=== PATIENT | female | born 1990 | race Caucasian/White ===

== ENCOUNTER → 2022-10-19 08:33 | Outpatient (BNVA) | payer OTHER, SELFPAY | PROVIDERS: Visit Provider Nurse Practitioner Family | DX: F07.81 Postconcussional syndrome (principal); G43.009 Migraine without aura, not intractable, without status migrainosus; G47.9 Sleep disorder, unspecified; Z33.1 Pregnant state, incidental | CPT/HCPCS: 99202 ==

== ENCOUNTER → 2023-01-17 14:21 | Outpatient (BNVA) | payer OTHER, SELFPAY | PROVIDERS: Visit Provider Nurse Practitioner Family ==

== ENCOUNTER 2024-02-04 09:59 | Emergency (ER) | payer OTHER, SELFPAY ==
--- NOTE | ~2024-02-04 | XR_ITS ---
EXAMINATION: XR LEFT ANKLE XR CHEST CLINICAL INFORMATION: Chest pain since . Rolled ankle 2 weeks ago, ongoing pain lateral side. History also states rolled ankle 1 week ago, and recommend correlation with clinical history for confirmation. COMPARISON: Left ankle and thoracic spine 11/24/2020. TECHNIQUE: 2 views of the chest. 3 views of the left ankle. Radiopaque marker placed by technologist to indicate the area of concern as indicated by the patient along the lateral aspect of the left ankle. FINDINGS: CHEST: Dextroscoliosis of the thoracic spine with mild multilevel degenerative changes. Heart size is normal. There is no gross pneumothorax. No pleural effusion. Mild anterior loss of height of a midthoracic vertebral body appears more pronounced compared with the exam of 11/24/2020. No focal consolidation to suggest pneumonia. Increased prominence along the left perihilar/mid mediastinal region concerning for possible adenopathy/mass versus vascularity. CT scan of the chest with intravenous contrast recommended. LEFT ANKLE: Soft tissue swelling most prominent at the lateral aspect of the ankle. Trace joint effusion. Ankle mortise is maintained. No acute displaced fracture is appreciated. XR/XR ankle LT min 3V IMPRESSION: 1. Increased prominence along the left perihilar/mid mediastinal region concerning for possible adenopathy/mass versus vascularity. CT scan of the chest with intravenous contrast recommended. 2. Mild anterior loss of height of a midthoracic vertebral body appears more pronounced compared with the exam of 11/24/2020. 3. Soft tissue swelling along the lateral aspect of the ankle. No displaced fracture of the ankle appreciated. This study was presented today, February 04, 2024, for interpretation. Stat results provided at this time as requested by referring provider.
--- NOTE | ~2024-02-04 | XR_ITS ---
EXAMINATION: XR LEFT ANKLE XR CHEST CLINICAL INFORMATION: Chest pain since . Rolled ankle 2 weeks ago, ongoing pain lateral side. History also states rolled ankle 1 week ago, and recommend correlation with clinical history for confirmation. COMPARISON: Left ankle and thoracic spine 11/24/2020. TECHNIQUE: 2 views of the chest. 3 views of the left ankle. Radiopaque marker placed by technologist to indicate the area of concern as indicated by the patient along the lateral aspect of the left ankle. FINDINGS: CHEST: Dextroscoliosis of the thoracic spine with mild multilevel degenerative changes. Heart size is normal. There is no gross pneumothorax. No pleural effusion. Mild anterior loss of height of a midthoracic vertebral body appears more pronounced compared with the exam of 11/24/2020. No focal consolidation to suggest pneumonia. Increased prominence along the left perihilar/mid mediastinal region concerning for possible adenopathy/mass versus vascularity. CT scan of the chest with intravenous contrast recommended. LEFT ANKLE: Soft tissue swelling most prominent at the lateral aspect of the ankle. Trace joint effusion. Ankle mortise is maintained. No acute displaced fracture is appreciated. XR/XR chest 2V IMPRESSION: 1. Increased prominence along the left perihilar/mid mediastinal region concerning for possible adenopathy/mass versus vascularity. CT scan of the chest with intravenous contrast recommended. 2. Mild anterior loss of height of a midthoracic vertebral body appears more pronounced compared with the exam of 11/24/2020. 3. Soft tissue swelling along the lateral aspect of the ankle. No displaced fracture of the ankle appreciated. This study was presented today, February 04, 2024, for interpretation. Stat results provided at this time as requested by referring provider.
--- NOTE | ~2024-02-04 | CT_ITS ---
EXAMINATION: CT ANGIOGRAM OF THE CHEST WITH AND WITHOUT CONTRAST (CT PULMONARY ANGIOGRAM FOR PE) CLINICAL INFORMATION: Reason for Exam elevated ddimer. Pleuritic chest pain COMPARISON: Chest radiograph TECHNIQUE: Prior to contrast administration, noncontrast localization images were obtained. Subsequently, multidetector volumetric imaging was performed from the thoracic inlet to below the diaphragms following the administration of 65 mL Omnipaque 350 intravenous contrast. No contrast reaction reported Sagittal, coronal, and MIP oblique sagittal reformatted images were obtained on the CT workstation, uploaded to PACS, and reviewed. This CT examination was performed using dose optimization techniques as appropriate, variously including the following: *Automated exposure control *Adjustment of mA and/or kV according to patient size (this includes techniques or standardized protocols for targeted exams where dose is matched to indication/reason for exam; i.e. extremities or head) *Use of iterative reconstruction technique Total exam dose-length product 220 mGy-cm FINDINGS: CUSTOMER MANAGEMENT SPECIALIST: Clear lungs QUALITY OF STUDY/CONTRAST BOLUS: Satisfactory. PULMONARY ARTERIES: No pulmonary emboli. HEART AND AORTA: No aneurysm. AIRWAYS AND LUNGS: Trachea and bronchi are patent. No consolidations, groundglass opacities or nodules. PLEURA: No pleural effusion or pneumothorax. MEDIASTINUM: Unremarkable thyroid. 8.5 x 5.4 x 4.9 cm homogeneous anterior mediastinal soft tissue density is identified. There is no communication with the thyroid. No pathologic lymphadenopathy. Few left-sided associated subcentimeter probable lymph nodes. 1 cm short axis subcarinal lymph node. 1 cm right hilar lymph node. Small hiatal hernia. CORONARY ARTERY CALCIFICATION: None visualized on this study. CHEST WALL/AXILLA: No axillary or internal mammary lymphadenopathy. OSSEOUS STRUCTURES: No acute or suspicious osseous abnormality. UPPER ABDOMEN: Enlarged low density liver. 2.1 cm hypodensity within the spleen, Hounsfield units higher than simple fluid. Heterogeneity to the remaining spleen may be due to phase of injection. Splenules. CT/CT angio chest PE protocol IMPRESSION: 8.5 cm anterior mediastinal mass. Appearance and demographics favor thymic origin/thymoma. MRI recommended. Indeterminate splenic lesion. Consider ultrasound. Liver:: negative
--- NOTE | 2024-02-04 10:02 | ECG_ITS ---
Test Reason : cp Blood Pressure : / mmHG Vent. Rate : 082 BPM Atrial Rate : 082 BPM P-R Int : 150 ms QRS Dur : 090 ms QT Int : 340 ms P-R-T Axes : 030 066 034 degrees QTc Int : 397 ms Normal sinus rhythm with sinus arrhythmia Normal ECG No previous ECGs available Referred By: Generic ED Physician Electronically Signed By:LEONCIO DAVILA MD
[2024-02-04 10:13] VITALS: BP 119/78; PULSE 88; RESP 16; TEMP 36.6; O2SAT 99; BMI 28.7
[2024-02-04 10:14] LABS: MANUAL DIFF FLAG NO
[2024-02-04 10:31] LABS: Basophils Absolute Auto 0.1 X10*3/uL (0.0-0.2); Basophils Percent Auto 0.5 % (0-2); Eosinophils Absolute Auto 0.8 X10*3/uL (0.0-0.4); Eosinophils Percent Auto 5.3 % (0-4); Hematocrit 41.2 % (37.0-47.0); Hemoglobin 13.5 g/dl (12.0-16.0); Imm Gran Abs Auto 0.07 X10*3/uL (0.00-0.03); Imm Gran Pct Auto 0.4 % (0.0-0.4); Lymphocytes Absolute Auto 2.2 X10*3/uL (1.2-4.9); Mean Corpuscular HGB Conc 32.8 g/dl (31.0-35.0); Mean Corpuscular Hemoglobin 26.8 pg (27.0-33.0); Mean Corpuscular Volume 81.7 fL (80.0-98.0); Mean Platelet Volume 10.2 fL (9.4-12.3); Monocytes Absolute Auto 0.8 X10*3/uL (0.1-1.2); Monocytes Percent Auto 4.9 % (2-11); Neutrophils Absolute Auto 11.7 x10*3/uL (2.0-8.3); Neutrophils Percent Auto 74.9 % (45-73); Platelet Count 360 X10*3/uL (160-400); Red Blood Count 5.04 X10*6/uL (4.20-5.50); Red Cell Distribution Width 13.9 % (11.0-16.0); White Blood Count 15.6 X10*3/uL (4.8-10.8)
--- NOTE | 2024-02-04 10:31 | ED_ITS ---
HPI - Chest Pain General Chief Complaint: Chest Pain Stated Complaint: Chest pain Time Seen by Provider: 02/04/24 10:31 Source: patient, RN notes reviewed and old records reviewed Mode of arrival: ambulatory History of Present Illness ED Provider: Delia Gonzalez PA-C HPI narrative: 33-year-old female with a past medical history of migraines, presenting to the ED complaining of congestion, rhinorrhea, dry cough x6 days and chest discomfort x 2 days described as sharp, worse with lying flat, movement, and deep breathing. Denies fever, chills, sick contacts, recent travel, oral OCPs, cigarette smoking, history of clots. Also reports left ankle pain x2 weeks s/p rolling ankle in ditch. Related Data Home Medications ?Medication ?Instructions ?Recorded ?Confirmed acetaminophen 500 mg tablet 500 mg PO Q6H PRN 01/17/23 01/17/23 (Tylenol Extra Strength) Previous Rx's ?Medication ?Instructions ?Recorded sumatriptan succinate 100 mg tablet 50 - 100 mg (0.5 - 1 x 100 mg) PO 01/17/23 .COMPLEX PRN migraine headache 30 days #12 tabs Allergies Allergy/AdvReac Type Severity Reaction Status Date / Time No Known Allergies Allergy Verified 02/04/24 10:15 Review of Systems 2 Review of Systems: Constitutional: No Fever, No Chills ENT/Mouth: No Ear Pain, + Nasal Congestion, No sore throat, + Rhinorrhea, No Swallowing Difficulty Cardiovascular: + Chest Pain, + SOB Respiratory: + Cough, No Sputum, No Wheezing Gastrointestinal: No Nausea, No Vomiting, No Diarrhea, No Constipation, No Abdominal pain Genitourinary: No Dysuria, No Urinary Frequency, No Hematuria, No Flank Pain Musculoskeletal: + joint pain, No Myalgias, + Joint Swelling Skin: No Skin Lesions, No rash Neuro: No Weakness, No Numbness, No Paresthesias Yes all other systems are reviewed and are negative Constitutional: Constitutional: Reports as per [facility] Past Medical History Attestation statement: The following information was validated with the patient. 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 Family History Family History Maternal Grandmother Arthritis Social History Social History Alcohol intake: current Alcohol intake frequency: other Patient Tobacco Use Status: Never used Tobacco Smoked in Last 30 Days: No Use of substances other than those prescribed or required for medical reasons: Yes Substance Use Type: Marijuana Advance Directives: No Advance Directives Information Provided: Yes Do you have a plan to hurt others: No Plan Patient : No Physical Exam 2 Vital Signs: Vital Signs: Last Vital Signs Temp 97.8 F 02/04/24 10:13 Pulse 85 02/04/24 16:00 Resp 13 02/04/24 16:00 BP 139/92 H 02/04/24 16:00 Pulse Ox 99 02/04/24 16:00 O2 Del Method Room Air 02/04/24 16:00 BMI result Body Mass Index 28.7 Const: General: cooperative, healthy appearing and no acute distress O rientation/consciousness: patient oriented x3 Limitations: no limitations HEENT: Head: Yes normal to inspection and Yes atraumatic Ears: hearing grossly normal bilaterally General nose exam: Normal external nose present Face and sinus: Yes normal facial exam Eyes: General: appearance normal, both eyes and all related structures EOM: EOMs intact bilaterally Neck: Neck: Yes normal visual inspection and Yes no meningeal signs Resp: Effort & Inspection: normal respiratory effort and no respiratory distress Auscultation: clear to auscultation bilaterally, no crackles and no wheezes Cardio: Rate: regular rate Heart sounds: S1 normal heart sound present and S2 normal heart sound present GI: Inspection: Yes normal to inspection Palpation (GI): Soft to palpation, nontender, no guarding and not rigid : General: Yes no CVA tenderness Back/Spine/Pelvis: Back: no CVA tenderness Skin: Rashes: no rashes Wounds: no wounds Neuro: General: patient oriented x3, tone normal and no meningeal signs C ranial nerves: Yes CN's II-XII intact bilaterally Gait exam (Neuro): Normal gait present Extrem: Other: Left ankle with mild swelling. No ecchymosis/erythema. + tender to palpation to lateral aspect. Neurovascularly intact. Course Course Course Narrative: -1100--leukocytosis of 15.6. Low suspicion for severe sepsis. Troponin negative -1155--D-dimer elevated to 350 > will obtain CTA to rule out PE -COVID/flu/RSV negative XR chest 2V/XR ankle LT min 3V IMPRESSION: 1. Increased prominence along the left perihilar/mid mediastinal region concerning for possible adenopathy/mass versus vascularity. CT scan of the chest with intravenous contrast recommended. 2. Mild anterior loss of height of a midthoracic vertebral body appears more pronounced compared with the exam of 11/24/2020. 3. Soft tissue swelling along the lateral aspect of the ankle. No displaced fracture of the ankle appreciated. This study was presented today, February 04, 2024, for interpretation. Stat results provided at this time as requested by referring provider. 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 Appearance and demographics favor thymic origin/thymoma. MRI recommended. Indeterminate splenic lesion. Consider ultrasound. Liver:: negative > case d/w Dr. Villegas who spoke with thoracic surgery, Dr. Roe who will see patient in office tomorrow morning at 10:00AM Results discussed with patient including worrisome signs and symptoms and strict return precautions, and when to return to the emergency department. They verbalized understanding and feel safe for discharge at this time. Medications Administered Discontinued Medications Generic Name Dose Route Start Last Admin Trade Name Freq PRN Reason Stop Dose Admin Iohexol 65 ml 02/04/24 14:15 02/04/24 14:16 Iohexol 300 Mg/Ml 75 Ml Infus..Btl IV 02/04/24 14:16 65 ml ONCE ONE Administration Medical Decision Making Medical Decision Making [facility] Narrative: 33-year-old female with a past medical history of migraines, presenting to the ED complaining of congestion, rhinorrhea, dry cough x6 days and chest discomfort x 2 days described as sharp, worse with lying flat, movement, and deep breathing. On exam vital signs stable, NAD, nontoxic appearing, lungs CTA, abdomen soft/nontender, no pedal edema/calf tenderness. Left ankle with noted swelling and tenderness. Concern for viral illness vs pneumonia vs bronchitis vs PE vs pericarditis/myocarditis.. Low suspicion for ACS/dissection. Concern for ankle sprain. Rule out fracture. Low suspicion for DVT Plan: EKG, labs, CXR, viral testing, re-evaluate Please refer to course for remaining clinical decision making, interpretation of labs/imaging results, and discussions with consultants and/or family members. Differential Diagnosis Differential Diagnoses: The differential diagnosis associated with the presentation includes As above Admission/Observation Consideration of admission/observation: Escalation of care including admission/observation considered Lab Data MDM Lab Attestation statement: I reviewed the patient's lab results. 02/04/24 10:09 02/04/24 10:09 Labs: Lab Results 02/04/24 02/04/24 Range/Units 10:09 11:09 WBC 15.6 H (4.8-10.8) X10*3/uL RBC 5.04 (4.20-5.50) X10*6/uL Hgb 13.5 (12.0-16.0) g/dl Hct 41.2 (37.0-47.0) % MCV 81.7 (80.0-98.0) fL MCH 26.8 L (27.0-33.0) pg MCHC 32.8 (31.0-35.0) g/dl RDW 13.9 (11.0-16.0) % Plt Count 360 (160-400) X10*3/uL MPV 10.2 (9.4-12.3) fL Immature Gran % (Auto) 0.4 (0.0-0.4) % Neut % (Auto) 74.9 H (45-73) % Lymph % (Auto) 14.0 L (20-40) % [place] % (Auto) 4.9 (2-11) % Eos % (Auto) 5.3 H (0-4) % Baso % (Auto) 0.5 (0-2) % Lymph # (Auto) 2.2 (1.2-4.9) X10*3/uL [place] # (Auto) 0.8 (0.1-1.2) X10*3/uL Eos # (Auto) 0.8 H (0.0-0.4) X10*3/uL Baso # (Auto) 0.1 (0.0-0.2) X10*3/uL Abs Immat Gran (auto) 0.07 H (0.00-0.03) X10*3/uL Absolute Neuts (auto) 11.7 H (2.0-8.3) x10*3/uL Absolute Nucleated RBC 0.000 (0.0-0.012) X10*3/uL Nucleated RBC % (auto) 0.0 (0.0-0.2) /100WBC D-Dimer High Sensitivty 350 NG/ML Sodium 137 (135-145) mmol/L Potassium 4.1 (3.3-5.1) mmol/L Chloride 106 (96-108) mmol/L Carbon Dioxide 22 (22-29) mmol/L Anion Gap 13 (12-20) BUN 10 (9-16) mg/dL Creatinine 0.71 (0.5-1.4) mg/dL Estim Creat Clear Calc 137.6 Estimated GFR > 60 Random Glucose 79 (60-115) mg/dL Calcium 9.9 (8.4-10.2) mg/dL Total Bilirubin 0.2 (0.0-1.0) mg/dL AST 12 (5-31) U/L ALT 13 (0-31) U/L Alkaline Phosphatase 128 H (39-117) U/L Troponin I High Sens < 2.7 (<3.5-17.0) ng/L Total Protein 8.1 H (6.5-8.0) g/dL Albumin 4.4 (3.5-5.0) g/dL Beta HCG, Quant < 2 mIU/mL Influenza Type A (PCR) NEGATIVE (Negative) Influenza Type B (PCR) NEGATIVE (Negative) RSV RNA Qual (PCR) NEGATIVE (Negative) SARS-CoV-2 RNA (RT-PCR) NEGATIVE (Negative) Independent Interpretation I performed an independent interpretation of an: EKG (My interpretation EKG normal sinus rhythm with sinus arrhythmia rate of 82. TX interval 150. QTC 397. No STEMI.) Radiology Impression Discussion of test interpretation with radiology: I have reviewed the radiologist's reading. External Record Review External record reviewed: Inpatient record, Office record, Outpatient record, Prior outpatient labs, Prior outpatient radiology, Primary care record and Outside ED record Tests considered The following testing was considered but not selected: As above Prescription Management I considered prescription management with: Pain Medication and Antibiotic Discharge Plan Discharge Clinical Impression: Atypical chest pain, Ankle sprain Patient Disposition: Still a Patient Instructions: Ankle Sprain (DC) Additional Instructions: Your blood work was reassuring. You tested negative for COVID, flu and RSV You have an ankle sprain. Ice and elevate. Wear Prakash wrap as needed. Prescriptions: No Action acetaminophen [Tylenol Extra Strength] 500 mg tablet 500 mg PO Q6H PRN sumatriptan succinate 100 mg tablet 50 - 100 mg PO .COMPLEX PRN (Reason: migraine headache) 30 Days Qty: 12 6RF Rx Instructions: 50 - 100 mg orally at onset of headache, may repeat in 2 hrs PRN; max 2 tabs per day or 4 tabs/week (may take with Ibuprofen) Referrals: Physician,Unknown J [Primary Care Provider] - 3 days Print Language: Greek
[2024-02-04 10:37] LABS: Alanine Aminotransferase 13 U/L (0-31); Albumin Level 4.4 g/dL (3.5-5.0); Alkaline Phosphatase 128 U/L (39-117); Anion Gap 13 (12-20); Aspartate Amino Transferase 12 U/L (5-31); Bilirubin Total 0.2 mg/dL (0.0-1.0); Blood Urea Nitrogen 10 mg/dL (9-16); Calcium 9.9 mg/dL (8.4-10.2); Carbon Dioxide 22 mmol/L (22-29); Chloride 106 mmol/L (96-108); Creatinine Clr Calc Pharmacy 137.6; Estimated Glomerular Filt Rate > 60; Glucose Random 79 mg/dL (60-115); Potassium 4.1 mmol/L (3.3-5.1); Sodium 137 mmol/L (135-145); Total Protein 8.1 g/dL (6.5-8.0)
[2024-02-04 10:49] LABS: Troponin-I High Sensitivity < 2.7 ng/L (<3.5-17.0)
--- NOTE | 2024-02-04 11:20 | PC.NURSE ---
pt c/o diffuse cp starting yesterday, she reports she has had a cough with yellow sputum nasal congestion and night sweats since . pt reports she has a hx of a positive TB spot test, reports this was over ten years ago and after further tested they ruled out a TB infection. informed provider Delia of this. plan to test for covid/fl/rsv at this time
[2024-02-04 11:28] LABS: D Dimer High Sensitivity 350 NG/ML
[2024-02-04 12:00] LABS: Influenza A PCR NEGATIVE (Negative); Influenza B PCR NEGATIVE (Negative); Resp Syncy Virus RNA Qual PCR NEGATIVE (Negative); SARS COV2 PCR INHOUSE NEGATIVE (Negative)
[2024-02-04 13:20] LABS: HCG Quantitative < 2 mIU/mL
[2024-02-04 13:57] VITALS: BP 138/86; PULSE 78; RESP 14; O2SAT 100
[2024-02-04 16:00] VITALS: BP 139/92; PULSE 85; RESP 13; O2SAT 99
[2024-02-04 17:13] VITALS: BP 139/92; PULSE 85; RESP 13; TEMP 36.6; O2SAT 99
== END 2024-02-04 17:13 | disposition home or self-care (01) ==
PROVIDERS: Physician Assistant; Emergency Provider Emergency Medicine
DX: R07.89 Other chest pain (principal); S93.402A Sprain of unspecified ligament of left ankle, initial encounter; X50.1XXA Overexertion from prolonged static or awkward postures, initial encounter; Y93.9 Activity, unspecified; Y92.9 Unspecified place or not applicable; Y99.9 Unspecified external cause status
CPT/HCPCS: 0241U; 36415; 71046; 71275; 73610; 80053; 84484; 84702; 85025; 85379; 93005; 99284; 99285; Q9967

== ENCOUNTER → 2024-02-04 10:02 | Outpatient (BNV) | payer OTHER, SELFPAY | PROVIDERS: Emergency Provider Emergency Medicine; Visit Provider Internal Medicine Cardiovascular Disease | DX: I49.9 Cardiac arrhythmia, unspecified (principal) | CPT/HCPCS: 93010 ==

== ENCOUNTER 2024-02-05 10:01 | Outpatient (AMB) | payer OTHER, SELFPAY ==
--- NOTE | 2024-02-05 10:03 | MHC.OFFVIS ---
Vital Signs 02/05/24 10:09 Height 5 ft 10.5 in Weight 190 lb BMI 26.9 BP 139/80 Blood Pressure Location Rt brachial Position Sitting Pulse 93 Intake Visit Reasons: Mediastinal mass Intake Note: Patient referred after ER visit yesterday. Came in for chest pain and had Chest CT scan. Per scan Rt ant mediastinal mass. Patient c/o: denies SOB, fatigue, breathing issues. [employer] Required: No Accompanied by: mother Marysol Galvan Allergies No Known Allergies Allergy (Verified 02/05/24 10:08) Medication List - Last Reconciled 02/05/24 by Dre Roe MD acetaminophen (Tylenol Extra Strength) 500 mg PO Q6H PRN sumatriptan succinate 50 - 100 mg orally at onset of headache, may repeat in 2 hrs PRN; max 2 tabs per day or 4 tabs/week (may take with Ibuprofen) 30 days HPI Comments Details: Patient presents with her mother. She was seen emergency department yesterday complaining of anterior chest discomfort and workup including CT scan demonstrated an anterior mediastinal mass. Patient denies any fever, chills or weight loss but has occasional night sweats. Interestingly, patient in 2000 had a history of non-Hodgkin's lymphoma and was treated with chemotherapy at that time and no radiation therapy. Lymph node for diagnosis was in the left supraclavicular/cervical area. Patient denies any chronic cough, chest pain, wheeze, or hemoptysis. Chart was reviewed and patient evaluated. 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 Chest sounds bilaterally. GI Other: Abdomen is soft, benign Extrem Other: Extremities all 4 grossly neurovascularly intact Assessment & Plan Assessment & Plan (1) Ankle sprain: Code(s): S93.409A - Sprain of unspecified ligament of unspecified ankle, initial encounter Category: Surgical Plan: Differential diagnosis especially with the patient's history of lymphoma includes lymphoma, thymoma, thyroid origin, or teratoma. The current plan is to arrange for interventional radiologic biopsy of this process and direct further intervention/studies based on the results. Arrangements were made for this. All questions answered. Patient will see me after the biopsy. Orders: Orders CT biopsy lung LT Today S93.409A - Sprain of unspecified ligament of unspecified ankle, initial encounter Coding Level of Care Code New Pt Level 4 (54309) Diagnoses Ankle sprain S93.409A
[2024-02-05 10:09] VITALS: BP 139/80; PULSE 93; BMI 26.9
== END 2024-02-05 10:31 | disposition home or self-care (01) ==
PROVIDERS: Visit Provider Surgery
DX: S93.409A Sprain of unspecified ligament of unspecified ankle, initial encounter (principal)
CPT/HCPCS: 99204

== ENCOUNTER → 2024-02-05 10:01 | Outpatient (BNVA) | payer OTHER, SELFPAY | PROVIDERS: Visit Provider Surgery | DX: C38.3 Malignant neoplasm of mediastinum, part unspecified (principal) | CPT/HCPCS: 99202 ==

== ENCOUNTER 2024-02-27 08:29 | Day surgery (SDC) | payer OTHER, SELFPAY ==
[2024-02-27] VITALS (11 sets, daily range): BP systolic 116–144; BP diastolic 68–86; PULSE 72–89; RESP 14–18; TEMP 36.3–36.7; O2SAT 97–100; BMI 28.1
--- NOTE | ~2024-02-27 | CT_ITS ---
33-year-old female with history of non-Hodgkin's lymphoma who presents with a large mediastinal mass. The thoracic surgeon requests a biopsy PROCEDURES: 1. Limited preprocedure CT of the chest. Permanent images saved in PACS. 2. CT-guided biopsy of the anterior mediastinal mass 3. Limited postprocedure CT of the chest. Permanent images saved in PACS. CLINICIANS: Goyo Webb PA-C MEDICATIONS: -Versed 1 mg, Fentanyl 50 mcg, and lidocaine 1% 10 mL SQ -Antibiotics: None -For additional details, please see nursing flowsheet. COMPLICATIONS: None ESTIMATED BLOOD LOSS: < 5 ml CONTRAST: None SPECIMENS: 5 x 20 g cores were sent for pathology and flow cytometry MODERATE SEDATION TIME: 20 min PROCEDURE NOTE: The procedure, risks, benefits, and alternatives were carefully explained to the patient and written informed consent was obtained. The patient was placed supine on the CT table. A timeout was performed. A limited CT of the chest was performed to localize the anterior spinal mass the and the internal mammary arteries. The patient was prepped and draped in usual sterile fashion. The skin and deeper soft tissues were anesthetized with lidocaine. Under CT guidance, a19 gague trocar needle was advanced into the anterior mediastinal mass. A 20 gauge biopsy device was inserted through the trocar needle and advanced into the mass. A total of 5 cores were performed. The specimens were placed in formalin and RPMI and sent for pathology and flow cytometry. The needle was removed. A dry dressing was applied and secured with Tegaderm. A limited postprocedure CT of the chest was performed, which did not demonstrate any pneumothorax/hemothorax or chest wall hematoma. There were no immediate complications. The patient was stable after the procedure and was transferred to the post anesthesia care unit. The procedure was done under moderate sedation with a dedicated nurse for monitoring of vital signs. CT/CT biopsy lung LT Impression: CT-guided anterior mediastinal mass biopsy This procedure was performed by Goyo Webb PA-C and supervised by Dr. Keenan.
--- NOTE | ~2024-02-27 | XR_ITS ---
EXAMINATION: XR CHEST CLINICAL INFORMATION: Status post mediastinal mass biopsy. COMPARISON: CT biopsy 02/27/2024, CT angiogram chest 02/04/2024, x-ray chest 02/04/2024. TECHNIQUE: Frontal view of the chest was obtained. FINDINGS: The heart size is normal. There is no gross pneumothorax. Redemonstration of mediastinal prominence compatible with known anterior mediastinal mass better characterized on CT scan. No gross pleural effusion. No new focal consolidation to suggest pneumonia. XR/XR chest 1V IMPRESSION: 1. Redemonstration of mediastinal prominence compatible with known anterior mediastinal mass better characterized on CT scan. 2. No gross pneumothorax.
--- NOTE | ~2024-02-27 | XR_ITS ---
EXAMINATION: XR CHEST CLINICAL INFORMATION: Status post mediastinal mass biopsy. COMPARISON: Chest x-ray of 02/27/2024 at 11:[address] biopsy 02/27/2024, CT angiogram chest 02/04/2024, x-ray chest 02/04/2024. TECHNIQUE: Frontal view of the chest was obtained at 12:56 PM on 02/27/2024. FINDINGS: The heart size is normal. There is no gross pneumothorax. Redemonstration of mediastinal prominence compatible with known anterior mediastinal mass better characterized on CT scan. No gross pleural effusion. No new focal consolidation to suggest pneumonia. XR/XR chest 1V IMPRESSION: 1. Redemonstration of mediastinal prominence compatible with known anterior mediastinal mass better characterized on CT scan. 2. No gross pneumothorax.
[2024-02-27 09:12] LABS: INTERNATIONAL NORM RATIO 1.1 (0.9-1.1)
[2024-02-27 09:14] LABS: Partial Thromboplastin Time 29.7 SEC (26.0-36.8)
[2024-02-27 09:41] LABS: UPreg QC Valid YES; Urine Pregnancy NEGATIVE (NEGATIVE)
--- NOTE | 2024-02-27 10:38 | MHC.SHP ---
Pre-Procedural Eval Section A - 24 Hr Update-Section A only Date of Service: 02/27/24 Section B - Complete if H&P > 30 days Chief Complaint: LEFT LUNG,MEDIASTINAL MASS,NON-HODGKINS LYMPHOMA Details of Present Illness: 33 y/o female with pmh of NHL who presents with a mediastinal mass Relevant Family History (Specify if Yes): No Relevant Social History: None Present Medications: see Short Stay Collaborative assessment Medical History: Significant History History of Previous Operations: No relevant previous surgery Allergies: Allergies Allergy/AdvReac Type Severity Reaction Status Date / Time No Known Allergies Allergy Verified 02/27/24 09:01 Review of Systems Sugical H&P ROS: Negative: Constitution, Cardiovascular and Respiratory Exam Surgical H&P Exam: Normal: Heart, Normal: Lungs, Normal: Skin and Normal: Neurological and Not Evaluated: HEENT Plan CT mediastinal mass biopsy Time Spent With Patient Time: Total time managing care of this patient today ____ minutes.
--- NOTE | 2024-02-27 12:15 | PC.NURSE ---
ZAHRAA Webb reviewed CXR and states patient can eat at this time. States he will order additional CXR for 1300
== END 2024-02-27 13:49 | disposition home or self-care (01) ==
PROVIDERS: Pathology Anatomic Pathology & Clinical Pathology; Physician Assistant Surgical; Radiology Vascular & Interventional Radiology; Visit Provider Surgery
DX: J98.59 Other diseases of mediastinum, not elsewhere classified (principal); Z85.72 Personal history of non-Hodgkin lymphomas; Z92.21 Personal history of antineoplastic chemotherapy; F41.9 Anxiety disorder, unspecified; Z79.899 Other long term (current) drug therapy; Z79.1 Long term (current) use of non-steroidal anti-inflammatories (NSAID)
CPT/HCPCS: 32408; 36415; 71045; 81025; 85610; 85730; 86850; 86900; 86901; 88184; 88185; 88300; 88305; 88341; 88342; 88365; 99152; J2250; J2310; J3010

== ENCOUNTER → 2024-02-27 10:08 | Outpatient (BNV) | payer OTHER, SELFPAY | PROVIDERS: Visit Provider Physician Assistant Surgical | DX: J98.59 Other diseases of mediastinum, not elsewhere classified (principal) | CPT/HCPCS: 32408 ==

== ENCOUNTER 2024-03-09 10:24 | Outpatient (AMB) | payer OTHER, SELFPAY ==
--- NOTE | 2024-03-09 10:29 | MHC.OFFVIS ---
Vital Signs 03/09/24 10:33 BP 122/68 Blood Pressure Location Rt brachial Position Sitting Pulse 78 Intake Visit Reasons: path results Intake Note: Patient here to discuss CT guided lung bx. Patient c/o: Path report: 02-27-2024. Petroleum Laboratory Technician Required: No Accompanied by: Mother Allergies No Known Allergies Allergy (Verified 03/09/24 10:32) HPI Comments Details: Patient presents with her mother. We discussed the results which are preliminary but consistent with lymphoma most likely recurrent. PFSH Medical History Anxiety Hodgkin's disease in remission Positive QuantiFERON-TB Gold test Family History Maternal Grandmother Arthritis Social History Alcohol intake: current Alcohol intake frequency: other Patient Tobacco Use Status: Never used Tobacco Substance Use Type: Marijuana Physical Exam Vital Signs: Last Vital Signs Pulse 78 03/09/24 10:33 BP 122/68 03/09/24 10:33 Chest Other: Biopsy site clean dry and intact Assessment & Plan Assessment & Plan (1) Mediastinal mass: Code(s): J98.59 - Other diseases of mediastinum, not elsewhere classified Category: Medical Plan Patient will be given a consult for oncology and further interventions and studies will be deferred to them. Patient may require Port-A-Cath which we can placed. All questions answered. Final pathology still pending (immunohistochemical studies) Coding Level of Care Code Est Pt Level 4 (05895) Diagnoses Mediastinal mass J98.59
[2024-03-09 10:33] VITALS: BP 122/68; PULSE 78
== END 2024-03-09 11:43 | disposition home or self-care (01) ==
PROVIDERS: Visit Provider Surgery
DX: J98.59 Other diseases of mediastinum, not elsewhere classified (principal)
CPT/HCPCS: 99213

== ENCOUNTER → 2024-03-09 10:24 | Outpatient (BNVA) | payer OTHER, SELFPAY | PROVIDERS: Visit Provider Surgery | DX: J98.59 Other diseases of mediastinum, not elsewhere classified (principal); Z85.71 Personal history of Hodgkin lymphoma; Z98.890 Other specified postprocedural states | CPT/HCPCS: 99212 ==

== ENCOUNTER → 2024-03-18 09:57 | Outpatient (BNV) | payer OTHER, SELFPAY | PROVIDERS: PCP Internal Medicine; Referring Provider Surgery; Visit Provider Internal Medicine | DX: C81.90 Hodgkin lymphoma, unspecified, unspecified site (principal); E87.6 Hypokalemia | CPT/HCPCS: 99205; 99213; 99214; G2211 ==

== ENCOUNTER → 2024-03-25 09:00 | Outpatient (BNV) | payer OTHER, SELFPAY | PROVIDERS: PCP Internal Medicine; Visit Provider Internal Medicine Pulmonary Disease | DX: C85.90 Non-Hodgkin lymphoma, unspecified, unspecified site (principal); Z01.811 Encounter for preprocedural respiratory examination | CPT/HCPCS: 94060; 94727; 94729 ==

== ENCOUNTER 2024-03-25 09:03 | Outpatient (REF) | payer OTHER, SELFPAY ==
--- NOTE | 2024-03-25 | PFT_ITS ---
Flows: FEV1: 85 % of predicted at 3.26 L FVC: 95 % of predicted at 4.42 L FEV1/FVC: 74 % Bronchodilator response: Absent Volumes: Total lung capacity: 93 % of predicted at 5.87 L Residual volume: 98 % of predicted at 1.46 L Slow vital capacity: 92 % of predicted at 4.42 L Expiratory reserve volume: 91 % of predicted at 1.53 L Diffusion capacity: Normal Impression: No obstructive or restrictive ventilatory defect. No bronchodilator response. Normal pulmonary function test. MTDD
[2024-03-25 11:12] VITALS: PULSE 97; RESP 16; O2SAT 98
== END 2024-03-25 09:04 | disposition home or self-care (01) ==
LOC: HO.RESP 09:03
PROVIDERS: PCP Internal Medicine; Visit Provider Internal Medicine
DX: C81.90 Hodgkin lymphoma, unspecified, unspecified site (principal)
CPT/HCPCS: 94010; 94640; 94727; 94729

== ENCOUNTER → 2024-03-25 11:02 | Day surgery (SDC) | payer OTHER, SELFPAY ==
--- NOTE | ~2024-03-25 | IR_ITS ---
CLINICAL HISTORY: Hodgkin's lymphoma. The patient presents to interventional radiology for placement of a port for chemotherapy. PROCEDURES: 1. Real-time ultrasound-guided access into the right internal jugular vein after documentation of selected vessel patency, and permanent image storing in the patient records. 2. Placement of a 6.6 [place]oth[place] single-lumen power port. CLINICIAN: Goyo Webb PA-C MEDICATIONS: - Versed 2 mg, Fentanyl 100 mcg, Lidocaine 1% 10 mL SQ -Antibiotics: Ancef 2g -For additional details, please see nursing flowsheet. Complications: None. Estimated blood loss: <5 ml Specimens: None. Contrast: None. Fluoroscopy time: 1.0 min MODERATE SEDATION TIME: 33 min PROCEDURE NOTE: The procedure, risks, benefits, and alternatives were carefully explained to the patient and written informed consent was obtained. The patient was placed supine on the fluoroscopy table. A timeout was performed. The right neck and chest was prepped and draped in usual sterile fashion. Maximum barrier technique was utilized. Local anesthesia was administered to the access site with 1% lidocaine. Under ultrasound guidance, the right internal jugular vein was accessed with a 5 fr micropuncture set. A 0.035 in wire was advanced into the IVC. A peel-away sheath was advanced over the wire and into the SVC, and the wire was removed. Next, subcutaneous lidocaine was administered to the chest. The port pocket was created after the skin incision, utilizing blunt dissection. Using blunt dissection, a subcutaneous tunnel was created that connects from the port pocket to the venotomy site. Through the peel-away sheath, the 6.6 Mosoth[place] port catheter was placed. The catheter position was verified with fluoroscopy to be at the superior vena cava/right atrial junction. The port was connected to the catheter and was placed in the pocket. The venotomy site was closed with a 3-0 Vicryl subcutaneous suture. The port incision site was closed with interrupted 3-0 Vicryl subcutaneous sutures and surgical glue. Prior to closing the skin, 1 g of Ancef solution was placed in the pocket. The port was tested, flushed, and packed with heparin per routine protocol. The patient tolerated the procedure well. The patient was stable after the procedure and was transferred to the PACU. The procedure was performed under moderate sedation and with a dedicated nurse with continuous monitoring of vital signs. A permanent image of the ultrasound the neck and fluoroscopic image of the chest was saved and sent to PACS. FINDINGS: 1. Patent right internal jugular vein 2. Placement of a 6.6 Mosotho single lumen power port. 3. Port flushes and aspirates very well with a 10 mL syringe. No pneumothorax. IR/IR cvc insert tunnel w prt/production assembly operator IMPRESSION: Placement of a 6.6 Mosotho single-lumen power port. PLAN: - The patient will be discharged home when stable by sedation protocol. - Port may be used immediately. This procedure was performed by Goyo Webb PA-C, and directly supervised by Dr. Harman
[2024-03-25 11:18] VITALS: BMI 26.9
[2024-03-25 12:03] LABS: UPreg QC Valid YES; Urine Pregnancy NEGATIVE (NEGATIVE)
--- NOTE | 2024-03-25 12:23 | MHC.SHP ---
Pre-Procedural Eval Section A - 24 Hr Update-Section A only Date of Service: 03/25/24 Section B - Complete if H&P > 30 days Chief Complaint: NON HODGKIN LYMPHOMA Details of Present Illness: 33 y/o female with Hodgkins lymphoma and poor iv access Relevant Family History (Specify if Yes): No Relevant Social History: None Present Medications: see Short Stay Collaborative assessment Medical History: Significant History (mediastinal mass/Hodgkins) History of Previous Operations: Relevant previous surgery/procedure and date(s) Allergies: Allergies Allergy/AdvReac Type Severity Reaction Status Date / Time No Known Allergies Allergy Verified 03/18/24 10:20 Review of Systems Sugical H&P ROS: Negative: Cardiovascular, Respiratory, Neurological and Integumentary Exam Surgical H&P Exam: Normal: Heart, Normal: Lungs, Normal: Skin and Normal: Neurological Plan 33 y/o female with Hodgkins lymphoma and poor iv access -Port Time Spent With Patient Time: Total time managing care of this patient today ____ minutes.
== END | disposition home or self-care (01) ==
PROVIDERS: Physician Assistant Surgical; Student in an Organized Health Care Education/Training Program; PCP Internal Medicine; Visit Provider Internal Medicine
DX: Z45.2 Encounter for adjustment and management of vascular access device (principal); C85.90 Non-Hodgkin lymphoma, unspecified, unspecified site
CPT/HCPCS: 36561; 81025; 99152; 99153; C1769; C1788; J0131; J0690; J1642; J1644; J2250; J2310; J3010

== ENCOUNTER → 2024-03-25 13:20 | Outpatient (BNV) | payer OTHER, SELFPAY | PROVIDERS: PCP Internal Medicine; Visit Provider Physician Assistant Surgical | DX: C81.90 Hodgkin lymphoma, unspecified, unspecified site (principal) | CPT/HCPCS: 36561; 76937; 77001; 99152 ==

== ENCOUNTER → 2024-03-27 08:44 | Outpatient (REF) | payer OTHER, SELFPAY ==
--- NOTE | 2024-03-27 08:49 | CA_ITS ---
Transthoracic Echocardiogram Patient (Last, First, Middle): Lynda Owen, Gender: Female Date of : 1990 Age: 33 Procedure Date: 03/27/2024 Procedure Type: Transthoracic Echocardiogram Location: OP Height: 177.8 cm Weight: 86.18 kg BSA: 2.04 m2 Heart Rate: bpm BP: 122 / 70 mmHg Instrument Repairer: TINO Referring MD: Malaika Reed MD Symptoms: pre chemo evaluation Study Quality: Adequate ECG Rhythm: Sinus Conclusions: - The left ventricular systolic function is normal. The calculated ejection fraction is 58% by biplane method. - No obvious valvular pathology seen on this study. Findings Left Ventricle Normal left ventricular cavity size. There is normal left ventricular wall thickness. The left ventricular systolic function is normal. The calculated ejection fraction is 58% by biplane method. There is no evidence of regional wall motion abnormalities. Diastolic function is normal for age. LV peak GLS -18%. Right Ventricle Normal right ventricular cavity size and systolic function. Atria Both atria are normal in size. Aortic Valve There is a normal trileaflet aortic valve. There is no aortic valve stenosis. There is no aortic valve regurgitation. Mitral Valve The mitral valve appears normal. There is trace mitral valve regurgitation. There is no mitral valve stenosis. Pulmonic Valve The pulmonic valve is likely normal. Tricuspid Valve Normal tricuspid valve structure. There is mild tricuspid valve regurgitation. There is no evidence of pulmonary hypertension. Great Vessels The asc aorta is normal in size. Venous The inferior vena cava is normal in size and collapses greater than 50% with inspiration. Pericardium/Pleural There is no evidence of pericardial effusion. Prior Study Comparison No prior study available for comparison. Recommendations, Care & Conclusions No obvious valvular pathology seen on this study. Measurements 2D Linear Measurements IVSd: 0.74 0.6-0.9/0.6-1.0 cm LVIDd: 4.51 3.9-5.3/4.2-5.9 cm LVIDd Index: 2.21 2.4-3.2/2.2-3.1 cm/m2 LVIDs: 3.04 2.0-3.6 cm LVPWd: 0.92 0.7-1.1 cm Ao Root: 2.60 2.1-3.5 cm LA Diam: 2.90 2.7-3.8/3.0-4.0 cm LAIDs Index: 1.42 1.5-2.3 cm/m2 LV Mass: 149.00 67-162/88-224 g LV Mass Index: 73.04 43-95/49-115 g/m2 LVOT Diam: 1.90 3.0+(-)1.3 cm 2D Systolic Function EF 4C: 56.70 >55% EF 2C: 57.90 >55% EF BiP: 58.00 >55% Mitral Valve MV Pk E: 0.92 MV PK A: 0.70 MV Decel Time: 197.00 E/A: 1.30 E'Lateral: 9.57 E'Medial: 9.25 E/E' Med: 9.90 E/E' Lat: 9.60 PHT: 58.00 MVA PHT: 3.79 Decel [place]: 4.64 Aortic Valve AoV Pk Alex: 1.91 AoV Mn Alex: 1.21 AoV VTI: 0.35 AoV Pk Grad: 15.00 Aov Mn Grad: 7.00 SAMRA Cont.VTI: 1.74 LVOT LVOT Pk Alex: 1.05 LVOT Mn Alex: 0.70 LVOT VTI: 0.21 LVOT Pk Grad: 4.00 LVOT Mn Grad: 2.00 LVOT Diam: 1.90 LVOT Area: 2.84 Diastolic Function MV Pk E: 0.92 MV Pk A: 0.70 E/A: 1.30 E'Medial: 9.25 E/E' Med: 9.90 E' Laterial: 9.57 E/E' Lat: 9.60 Right Ventricle TAPSE (mm): 23.20 TVS' Alex: 8.70 Tricuspid Valve TR Pk Alex: 2.27 TR Pk Grad: 21.00 RA Press: 3.00 RVSP: 24.00 Great Vessels Aorta Ao Root-2D: 2.60 2.0-3.7 cm Ao Asc: 3.00 2.1-3.4 cm Ao Arch: 2.20 Updated in Other Vendor System with Status of Final J Carlos Myrick MD electronically signed on 03/29/2024 10:37:53 AM with status of Final
== END ==
LOC: HO.CARD 08:44
PROVIDERS: PCP Internal Medicine; Visit Provider Internal Medicine
DX: C81.90 Hodgkin lymphoma, unspecified, unspecified site (principal)
CPT/HCPCS: 93306; 93356

== ENCOUNTER → 2024-03-27 08:49 | Outpatient (BNV) | payer OTHER, SELFPAY | PROVIDERS: PCP Internal Medicine; Visit Provider Internal Medicine | DX: I36.1 Nonrheumatic tricuspid (valve) insufficiency (principal); Z01.818 Encounter for other preprocedural examination | CPT/HCPCS: 93306; 93356 ==

== ENCOUNTER → 2024-06-11 08:57 | Outpatient (REF) | payer OTHER, SELFPAY ==
--- NOTE | 2024-06-11 08:59 | CA_ITS ---
Transthoracic Echocardiogram Patient (Last, First, Middle): Lynda Owen, Gender: Female Date of : 1990 Age: 33 Procedure Date: 06/11/2024 Procedure Type: Transthoracic Echocardiogram Location: OP Height: 177.8 cm Weight: 90.72 kg BSA: 2.09 m2 Heart Rate: 88 bpm BP: 128 / 68 mmHg Track Laminating Machine Tender: ANILA Referring MD: Malaika Reed MD Hoop Bending Machine Operator: Tevin Hale MD Symptoms: post chemo eval Study Quality: Adequate ECG Rhythm: Sinus Conclusions: - 1. Normal LV ejection fraction 55-60% with impaired relaxation filling pattern 2. Normal cardiac valvular Dopplers 3. No gross pericardial effusion Findings Left Ventricle Normal left ventricular size, thickness, and systolic function. The visually estimated ejection fraction is between 55-60%. Spectral Doppler is indicative of an impaired relaxation filling pattern. E/E prime ratio is between 8 and 15 consistent with indeterminate filling pressures. Peak GLS is -17.4%, borderline low. Right Ventricle Normal right ventricular cavity size and systolic function. Atria Both atria are normal in size. There is no evidence of interatrial shunt. Aortic Valve Normal aortic valve structure and function. There is no aortic valve stenosis. There is no aortic valve regurgitation. Mitral Valve Normal mitral valve structure and function. There is trace mitral valve regurgitation. There is no mitral valve stenosis. Pulmonic Valve The pulmonic valve is likely normal. Tricuspid Valve Likely normal tricuspid valve structure and function. Tricuspid regurgitation envelope is inadequate for calculation of right ventricular systolic pressure. Normal right atrial pressure. Great Vessels All visible segments of the aorta are normal in size. The pulmonary artery was not well visualized. There is no dilatation of the ascending aorta measuring 2.50 cm. Venous The inferior vena cava is normal in size and collapses greater than 50% with inspiration. Pericardium/Pleural There is no evidence of pericardial effusion. Prior Study Comparison No significant change compared to prior study dated: 03/27/2024. Measurements 2D Linear Measurements IVSd: 0.80 0.6-0.9/0.6-1.0 cm LVIDd: 4.67 3.9-5.3/4.2-5.9 cm LVIDd Index: 2.23 2.4-3.2/2.2-3.1 cm/m2 LVIDs: 3.20 2.0-3.6 cm LVPWd: 0.69 0.7-1.1 cm LA Diam: 3.60 2.7-3.8/3.0-4.0 cm LAIDs Index: 1.72 1.5-2.3 cm/m2 LV Mass: 137.29 67-162/88-224 g LV Mass Index: 65.69 43-95/49-115 g/m2 LVOT Diam: 2.00 3.0+(-)1.3 cm 2D Systolic Function EF 4C: 54.20 >55% EF 2C: 60.30 >55% EF BiP: 56.90 >55% Mitral Valve MV Pk E: 0.69 MV PK A: 0.92 MV Decel Time: 79.00 E/A: 0.80 E'Lateral: 6.09 E'Medial: 6.85 E/E' Med: 10.10 E/E' Lat: 11.40 PHT: 23.00 MVA PHT: 9.57 Decel Martin: 8.73 Aortic Valve AoV Pk Alex: 1.35 AoV Pk Grad: 7.00 SAMRA: 2.78 LVOT LVOT Pk Alex: 1.21 LVOT Mn Alex: 0.83 LVOT VTI: 0.20 LVOT Pk Grad: 6.00 LVOT Mn Grad: 3.00 LVOT Diam: 2.00 LVOT Area: 3.14 Diastolic Function MV Pk E: 0.69 MV Pk A: 0.92 E/A: 0.80 E'Medial: 6.85 E/E' Med: 10.10 E' Laterial: 6.09 E/E' Lat: 11.40 Right Ventricle TAPSE (mm): 20.70 TVS' Alex: 10.80 Tricuspid Valve RA Press: 3.00 Great Vessels Aorta Sinus of Valsalva: 2.90 2.0-3.5 cm Ao Asc: 2.50 2.1-3.4 cm Ao Arch: 2.20 Ao Desc: 2.20 Pulmonary Valve PV Pk Alex: 1.07 Peak PV Grad: 5.00 Updated in Other Vendor System with Status of Final Tevin Hale MD electronically signed on 06/11/2024 4:16:35 PM with status of Final
== END ==
LOC: HO.CARD 08:57
PROVIDERS: Visit Provider Internal Medicine
DX: C81.90 Hodgkin lymphoma, unspecified, unspecified site (principal)
CPT/HCPCS: 93306; 93356

== ENCOUNTER → 2024-06-11 08:59 | Outpatient (BNV) | payer OTHER, SELFPAY | PROVIDERS: Visit Provider Internal Medicine Cardiovascular Disease | DX: Z08 Encounter for follow-up examination after completed treatment for malignant neoplasm (principal) | CPT/HCPCS: 93306; 93356 ==

== ENCOUNTER 2024-06-19 08:50 | Outpatient (REF) | payer OTHER, SELFPAY ==
[2024-06-19 10:16] LABS: HCG Quantitative < 2 mIU/mL
== END 2024-06-19 08:51 | disposition home or self-care (01) ==
LOC: HO.LAB 08:50
PROVIDERS: PCP Internal Medicine; Visit Provider Internal Medicine
DX: C81.90 Hodgkin lymphoma, unspecified, unspecified site (principal)
CPT/HCPCS: 36415; 84702

== ENCOUNTER 2024-12-14 09:02 | Day surgery (SDC) | payer OTHER, SELFPAY ==
[2024-12-14] VITALS (11 sets, daily range): BP systolic 108–126; BP diastolic 59–75; PULSE 59–83; RESP 10–18; TEMP 36.4–36.8; O2SAT 98–100; BMI 25.3
--- NOTE | ~2024-12-14 | IR_ITS ---
EXAMINATION: Removal of port. CLINICAL INDICATION: Port normal longer needed. History of non-Hodgkin's lymphoma TECHNIQUE: Following explaining removal of port procedure, benefits and risk, a written consent was obtained. Patient was placed supine on angiography table and a single image was obtained of port catheter. 1% lidocaine was inserted along the right upper anterior chest wall Mediport was inserted. Is small skin incision was performed with a scalpel. Blunt dissection was carried out this tissues surrounding the bowel and below the port. With artery forceps the stem of the port was held and further dissection was carried out. The port was completely and removed. The catheter attached to the port was also removed. Hemostasis achieved with approximately 2 to 5 mL loss of blood. Subcutaneous and skin abdominal sutures are placed. A Dermabond with Steri-Strips were also applied for complete closure. Conscious sedation was utilized during exam. The sedation time is 26 minutes. FINDINGS/ IR/IR cvc remove tunnel w prt/assessment services manager IMPRESSION: Successful removal of right Port-A-Cath without immediate complications. FLUOROSCOPY TIME: 26 minutes. Electronically signed by: Darren Hernandez MD 12/15/2024 11:08 AM EDT
[2024-12-14 09:27] LABS: UPreg QC Valid YES; Urine Pregnancy NEGATIVE (NEGATIVE)
--- NOTE | 2024-12-14 10:20 | PC.NURSE ---
Dr. Hernandez updated that patient is noted to have stuffy nose, congested voice and occ. cough noted with no sputum. afebrile. denies n/v/. vs wnl. lungs are clear. okay to proceed. no interventions at this time. patient states she believes that it is allergies and has been same symptoms x 1 week.
[2024-12-14] MEDS: Midazolam HCl 2 MG/2 ML VIAL 1 MG IVPUSH (11:27)
[2024-12-14] MEDS: fentaNYL citrate/PF 100 MCG/2 ML VIAL 25 MCG IVPUSH (11:27)
== END 2024-12-14 13:23 | disposition home or self-care (01) ==
PROVIDERS: Anesthesiology; Radiology Diagnostic Radiology; PCP Internal Medicine; Visit Provider Internal Medicine
PROC: (CPT 36590; principal; 2024-12-14 10:30)
DX: Z45.2 Encounter for adjustment and management of vascular access device (principal); C81.9A Hodgkin lymphoma, unspecified, in remission; Z94.84 Stem cells transplant status; R76.12 Nonspecific reaction to cell mediated immunity measurement of gamma interferon antigen response without active tuberculosis; F41.9 Anxiety disorder, unspecified; Z79.899 Other long term (current) drug therapy; Z79.1 Long term (current) use of non-steroidal anti-inflammatories (NSAID)
CPT/HCPCS: 36590; 81025; 99152; 99153; J2003; J2250; J3010

== ENCOUNTER → 2024-12-14 11:30 | Outpatient (BNV) | payer OTHER, SELFPAY | PROVIDERS: PCP Internal Medicine; Visit Provider Radiology Diagnostic Radiology | DX: Z45.2 Encounter for adjustment and management of vascular access device (principal); Z85.72 Personal history of non-Hodgkin lymphomas | CPT/HCPCS: 36590; 77001; 99152 ==